=== PATIENT | male | born 1955 | race Caucasian/White ===

== ENCOUNTER → 2016-10-21 | Outpatient (CLI) | payer OTHER ==
[~2016-10-21] MED LIST: ADVAIR DIS1 PUFF/DO1 IH; AMBIEN DPS10 MG PO; CLARINEX-D 121 EACH PO; CLARITIN10 M2 PO; COMPAZINE10 MG PO; DALIRESP500 MCG PO; DECADRON-DPS4 MG PO; DELTASONE DPS5 MG PO; ELIQUIS5 MG PO; PROVENTIL HFA6.7 GM IH; TAZTIA XT300 MG PO; TUDORZA PRESS400 MCG IH; TYLENOL EXTRA500 M1 PO; XANAX DPS0.5 MG PO
== END | disposition home or self-care (01) ==
LOC: RAD.S 07:44 → PTH.S 08:00
DX: C34.11 Malignant neoplasm of upper lobe, right bronchus or lung (principal); C34.81 Malignant neoplasm of overlapping sites of right bronchus and lung; R94.2 Abnormal results of pulmonary function studies; I10 Essential (primary) hypertension; R91.1 Solitary pulmonary nodule; R22.2 Localized swelling, mass and lump, trunk

== ENCOUNTER → 2017-01-14 | Outpatient (CLI) | payer OTHER | END | disposition home or self-care (01) | LOC: PTH.S 07:39 | DX: C34.11 Malignant neoplasm of upper lobe, right bronchus or lung (principal); C34.81 Malignant neoplasm of overlapping sites of right bronchus and lung; I10 Essential (primary) hypertension; R91.1 Solitary pulmonary nodule; R22.2 Localized swelling, mass and lump, trunk ==

== ENCOUNTER 2017-04-18 07:13 | Day surgery (SDC) | payer OTHER | END 2017-04-18 11:05 | disposition home or self-care (01) | DX: C34.31 Malignant neoplasm of lower lobe, right bronchus or lung (principal); I10 Essential (primary) hypertension; Z79.899 Other long term (current) drug therapy ==